=== PATIENT | female | born 1980 ===

== ENCOUNTER → 2018-01-12 | Outpatient (CLI) | payer BC | LOC: COL.RAD 13:03 | DX: S83.241A Other tear of medial meniscus, current injury, right knee, initial encounter (principal); S83.281A Other tear of lateral meniscus, current injury, right knee, initial encounter; M25.761 Osteophyte, right knee; T84.89XA Other specified complication of internal orthopedic prosthetic devices, implants and grafts, initial encounter; M25.461 Effusion, right knee; M71.21 Synovial cyst of popliteal space [Baker], right knee ==